=== PATIENT | female | born 1970 | race African-American/Black ===

== ENCOUNTER → 2016-02-27 | Outpatient (CLI) | payer OTHER ==
[~2016-02-27] MED LIST: CAPE150T PO; DIME50TA49 PO; DRGTP100; DRGTP100 TOP; FENT25DI10 TD; FENT25DI2 TD; FNTTP50 TD; IBUP-103 PO; ONDA8TAB6 PO; OXYC1TAB3 PO; TAMO20TA47 PO; XLD/500 PO; zofran
--- NOTE | 2016-02-27 11:30 | DIAGNOSTIC IMAGING REPORT ---
CT OF THE CHEST WITH IV CONTRAST CLINICAL HISTORY: Breast cancer COMPARISON STUDY: 08/06/2015 TECHNIQUE: Following the IV administration of 92 mL of Optiray-320, CT of the thorax was performed from the thoracic inlet to the lung bases. Images are reviewed in the axial, sagittal, and coronal planes. IV contrast was administered without complication. CT DOSE: FINDINGS: Thyroid: Imaged portions of the thyroid gland are normal in appearance. Thoracic aorta: The thoracic aorta is normal in course and caliber, noting standard 3-vessel arch anatomy. No aneurysm or dissection is seen. Pulmonary vasculature: The pulmonary trunk is normal in caliber. There are no central filling defects identified to suggest pulmonary embolus. Note that this examination was not protocoled for the evaluation of pulmonary emboli. HEART: The heart is normal in size and configuration, without pericardial effusion. Lungs and pleural spaces: There is a stable 3 mm right upper lobe pulmonary nodule as visualized in image #[id number]. There are stable subcentimeter right lower lobe and right middle lobe nodules abutting the fissure. There is basilar atelectasis. There is no acute lobar consolidation. There are no significant pleural effusions. Mediastinum: There is no mediastinal lymphadenopathy. Sully: There is no evidence of pathologic adenopathy Axilla: Mildly prominent left axillary lymph nodes remain similar. Upper abdomen: There is a 25 mm hypodensity within the right hepatic lobe. This is suspicious for a metastatic deposit. Tiny hypodensities within the right hepatic lobe. The dome of diaphragm remain stable and likely represent cysts. Skeletal structures: There are diffuse skeletal metastasis which appear progressive when compared the prior study. IMPRESSION: 1. Progressive diffuse skeletal metastasis 2. Enlarging 25 mm lesion within the right lobe of the liver suspicious for a metastatic deposit 3. Stable 3 mm right upper lobe pulmonary nodule and perifissural right middle and lower lobe pulmonary nodules Electronically signed by: Loy Pierce M.D. 02/27/2016 11:28 AM Dictated Date/Time: 02/27/2016 11:21 AM
--- NOTE | 2016-02-27 11:34 | DIAGNOSTIC IMAGING REPORT ---
CT SCAN OF THE ABDOMEN AND PELVIS WITH IV CONTRAST CLINICAL HISTORY: Breast cancer. COMPARISON STUDY: Abdominal CT dated 08/06/2015 and 05/03/2014. TECHNIQUE: Following the IV administration of 92 cc of Optiray 320, CT scan of the abdomen and pelvis is performed from the lung bases to the proximal femora. Images are reviewed in the axial, sagittal, and coronal planes. IV contrast was administered without complication. Automated dose control exposure was utilized. The examination is degraded by streak artifact from the left arm which could not be elevated above the abdomen. CT DOSE: 651.65 mGy.cm FINDINGS: Lung bases: The heart is normal in size and without pericardial effusion. Scarring versus atelectasis is present at both lung bases. There is no airspace consolidation or pleural effusion. Nodules are present in the right middle and right lower lobe as seen on image #22. These measure up to 5 mm and are unchanged from previous. There is a small hiatal hernia. Liver: The contrast-enhanced liver is normal in size, contour, and attenuation. There is no intrahepatic biliary ductal dilatation. The hepatic veins and portal veins are patent. A 2.3 cm low-attenuation lesion is again seen in the right lobe on image #85. This has increased in size from 08/06/2015 and remains concerning for metastatic disease. No new hepatic lesions are identified. 2 subcentimeter hypodensities in the right lobe are unchanged and likely represent cysts but are too small for definitive characterization. Gallbladder: Unremarkable. Spleen: Normal in size and attenuation. Pancreas: Unremarkable. Adrenal glands: Unremarkable. Kidneys: The contrast enhanced kidneys are normal in size and without hydronephrosis. The kidneys enhance symmetrically. Abdominal vasculature: The abdominal aorta is normal in course and caliber noting mild atherosclerotic calcification. Bowel: The small bowel and colon are normal in course and caliber. There is moderate colonic fecal retention. The appendix is not visualized. Peritoneum: There is no intraperitoneal free air or abdominal ascites. There is a fat-containing umbilical hernia with evidence of previous ventral hernia repair. Lymphadenopathy: None. Pelvic viscera: The bladder is decompressed and not well evaluated. The uterus is normal as imaged. There are large bilateral ovarian follicles. The largest is on the right and measures up to 2.5 cm. Skeletal structures: The skeletal structures are osteopenic. 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 This is seen throughout all visualized bony structures and has significantly progressed from 08/06/2015. There is a healing pathologic fracture of the right inferior pubic ring, new from 08/06/2015. Bilateral pathologic rib fractures are also new. An intramedullary nail is partially visualized in the distal left humerus. IMPRESSION: 1. 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 2. Pathologic fractures of the right inferior pubic ring and bilateral ribs are new from previous. 3. An enlarging right lobe hepatic lesion is consistent with progression of metastatic disease. No new liver lesions are seen. 4. Hiatal hernia. 5. Moderate colonic fecal retention. 6. Prior surgical nodules at the right lung base are similar to previous. 7. Additional changes as above. Electronically signed by: García Noel M.D. 02/27/2016 11:32 AM Dictated Date/Time: 02/27/2016 11:22 AM
== END | disposition home or self-care (01) ==
LOC: C.CTS 10:56
PROVIDERS: ATTEND Internal Medicine Hematology & Oncology
DX: C50.919 Malignant neoplasm of unspecified site of unspecified female breast (principal); C79.51 Secondary malignant neoplasm of bone; K44.9 Diaphragmatic hernia without obstruction or gangrene; K59.00 Constipation, unspecified

== ENCOUNTER → 2016-04-21 | Outpatient (CLI) | payer OTHER ==
[~2016-04-21] MED LIST changes: -FENT25DI2 TD; +OPTIRAY 320 IV PRN; -TAMO20TA47 PO
--- NOTE | 2016-04-21 14:36 | DIAGNOSTIC IMAGING REPORT ---
CT brain combination HEAD COMBO CLINICAL HISTORY: Metastatic carcinoma mental status change TECHNIQUE: Pre and postcontrast transaxial images COMPARISON STUDY: 03/07/2014 FINDINGS: Interval development of diffuse bony metastatic change. Microlytic defects are identified within the right temporal fossa region, head of the right mandibular condyle, with small microtear defects involving the right frontal and posterior parietal occipital regions. There is relatively large 2.0 cm defect left frontal bone. There is an associated soft tissue component although this does not appear to erode into the brain substance. Ventricular system is midline. There are additional lytic defects over the cerebral convexities. No definite brain parenchymal lesion is identified. Ventricular system is midline. IMPRESSION: 1. Interval development of diffuse bony metastatic disease throughout the skull. 2. No evidence for parenchymal metastatic change specifically involving the brain 3. There is a large 2 cm lytic focus left frontal bone with associated soft tissue component. This appears to be in contact with the dural surface although direct involvement of the brain does not appear to be present at the current time Electronically signed by: Marco A Lubin M.D. 04/21/2016 2:35 PM Dictated Date/Time: 04/21/2016 2:29 PM
--- NOTE | 2016-04-21 14:50 | DIAGNOSTIC IMAGING REPORT ---
CT NECK WITH INTRAVENOUS CONTRAST HISTORY: Metastatic breast cancer. Bone metastases. TECHNIQUE: Multiaxial CT images of the neck were performed following the use of intravenous contrast. COMPARISON STUDY: Bone scan 08/06/2015. FINDINGS: There are multiple mixed lytic and sclerotic metastatic lesions seen throughout the visualized osseous structures including the entire cervical and thoracic spine. There are also mixed lytic and sclerotic lesions at the clivus and left occipital bone. Large metastatic lesion involving the majority of right hemimandible including the right mandibular condyle. There is near complete destruction of the angle of the right hemimandible due to the soft tissue metastatic focus. This soft tissue mass surrounding the ramus/angle of the right hemimandible measures up to 1.9 cm in thickness. Multiple subacute to chronic pathologic fractures involving the visualized upper ribs. There are also multiple metastatic lesions seen throughout the visualized ribs, sternum, and clavicles. There is a mildly displaced pathologic fracture at the spinous process of C7. This is also likely subacute to chronic. No cervical lymphadenopathy. The thyroid gland enhances normally. The major cervical vessels are patent. Prevertebral soft tissues and the epiglottis are normal in thickness. The orbits are unremarkable. Centered at the T2 level there is a component of the destructive soft tissue mass which extends into the paravertebral and epidural space. This measures up to 4 mm in thickness at the epidural space. However, this no central canal narrowing. There appears be a few additional areas of paraspinal/epidural involvement of destructive soft tissue masses within the upper thoracic spine. IMPRESSION: 1. There are innumerable mixed lytic and sclerotic metastatic lesions seen throughout the visualized osseous structures as described above. This involves the entire visualized cervical and thoracic spine. 2. Large destructive metastatic lesion involving the majority of the right hemimandible with an associated expansile soft tissue component surrounding the ramus/angle of the right hemimandible which measures up to 1.9 cm in thickness. 3. Some of the metastatic lesions within the upper thoracic spine extend into the paraspinal and epidural soft tissues. This is most pronounced at T2 which demonstrates 4 mm of epidural expansion. However, this no significant central canal narrowing. 4. Subacute to chronic pathologic fractures involving the spinous processes of C7 and within the visualized bilateral upper ribs. Electronically signed by: Bk Baptiste M.D. 04/21/2016 2:49 PM Dictated Date/Time: 04/21/2016 2:29 PM
== END | disposition home or self-care (01) ==
LOC: C.CTS 13:51
PROVIDERS: ATTEND Internal Medicine Hematology & Oncology
DX: C50.919 Malignant neoplasm of unspecified site of unspecified female breast (principal)

== ENCOUNTER → 2016-12-22 | Outpatient (CLI) | payer OTHER ==
[~2016-12-22] MED LIST changes: -CAPE150T PO; -DRGTP100 TOP; -FENT25DI10 TD; -FNTTP50 TD; +MethylPREDNISolone HOME PACK 16 MG TAB PO SCH; -XLD/500 PO; -zofran
--- NOTE | 2016-12-22 16:59 | DIAGNOSTIC IMAGING REPORT ---
ABD/PELVIS IV AND ORAL CONT CLINICAL HISTORY: 46 years-old Female presenting with BREAST CA. TECHNIQUE: Multidetector CT of the abdomen and pelvis was performed after the administration of oral and intravenous contrast. IV contrast: 116 mL of Optiray 320. A dose lowering technique was used consistent with the principles of ALARA (as low as reasonably achievable). COMPARISON: 02/27/2016. CT DOSE (mGy.cm): The estimated cumulative dose is 396.54 mGy.cm. FINDINGS: [facility] topogram: Unremarkable. Lung bases: Minimal bandlike opacities at the lung bases likely atelectasis or scarring. Several of the right lung base nodules are stable from prior and at least one has resolved. Normal heart size. No pericardial or pleural effusion. Liver: Normal morphology. Previously noted lesion in the lateral right hepatic lobe has decreased in size with minimal overlying subcapsular retraction. This lesion now measures 13 mm (series 7 image 67), previously 23 mm. Multiple additional well-defined hypodensities in the liver, too small to characterize but likely hepatic cysts or hamartomas. Patent hepatic vasculature. Biliary: No intrahepatic or extrahepatic biliary ductal dilatation. Normal gallbladder. Pancreas: Mild prominence of the pancreatic duct unchanged from prior. No evidence of an obstructing mass at the level of the ampulla Vater. Normal pancreatic parenchyma. Spleen: Normal. Adrenal glands: Poorly visualized. Kidneys and ureters: Normal. No hydronephrosis. Bladder: Mild circumferential bladder wall thickening. Pelvic organs: Uterus and ovaries normal. Bowel: Moderate stool burden primarily in the right and transverse colon. No bowel obstruction. Peritoneal cavity: No free fluid or intraperitoneal gas. Lymph nodes: No enlarged lymph nodes in the abdomen or pelvis. Vasculature: Atherosclerosis of the normal caliber abdominal aorta. IVC patent. Abdominal wall: Normal. Musculoskeletal: Diffuse heterogeneity of bone marrow consistent with diffuse skeletal metastatic disease. The degree of diffuse osseous involvement makes direct comparison difficult, however, the bone marrow appears diffusely more sclerotic. Deformities of the bilateral inferior pubic rami consistent with healed fractures. IMPRESSION: 1. Overall evolution of diffuse osseous metastatic disease, with increased sclerosis of bone marrow. The diffuse degree of osseous involvement makes direct comparison difficult, and the presence of sclerosis could potentially indicate posttreatment change. 2. Decreased size of the single suspicious hepatic lesion concerning for metastases. This suggests treatment response. 3. Moderate stool burden. Electronically signed by: Cuauhtemoc Gonzalez M.D. 12/22/2016 4:57 PM Dictated Date/Time: 12/22/2016 4:47 PM
--- NOTE | 2016-12-22 17:42 | DIAGNOSTIC IMAGING REPORT ---
(CHEST) THORAX WITH CLINICAL HISTORY: 46 years-old Female presenting with BREAST CA. TECHNIQUE: Multidetector CT imaging of the chest was performed after the administration of intravenous contrast. IV contrast: 116 mL of Optiray 320. A dose lowering technique was used consistent with the principles of ALARA (as low as reasonably achievable). COMPARISON: 02/27/2016. CT DOSE (mGy.cm): The estimated cumulative dose is 396.[address] abdomen and pelvis. FINDINGS: [employer] Down Nurse topogram: Unremarkable. On soft tissue windows, biopsy clip or calcification noted in the left breast. Possible fat microcysts may be associated with this along the medial and inferior aspect. Normal thyroid. Subcentimeter prominent left axillary lymph nodes are not pathologically enlarged by CT size criteria and not significantly changed from prior exam. No axillary, supraclavicular, internal mammary, hilar, or mediastinal lymphadenopathy. Atherosclerosis of the aorta. Normal heart size. No pericardial or pleural effusion. Right hepatic lesion better characterized on CT of the abdomen and pelvis. Multiple small hypodensities in the liver likely hepatic cysts or hamartomas. On lung windows, solid pulmonary nodules in the right lung are unchanged from prior (series 6 images 80, 172, 177, and 181). These measure up to 3 mm in size. Minimal fissural nodularity in the left lung is also unchanged (series 6 image 153). No new pulmonary nodule. Minimal bandlike opacities at the lung bases likely atelectasis or scarring. Airways patent. On bone windows, fixation hardware partially visualized in the left humeral head. Diffuse heterogeneity of bone marrow consistent with diffuse osseous metastatic disease. Bone marrow appears more sclerotic on the current exam. Redemonstration of pathologic healed rib fractures. IMPRESSION: 1. Stable small pulmonary nodules. No new pulmonary nodule or other evidence of intrathoracic metastatic disease. No lymphadenopathy. 2. Diffuse osseous metastatic disease appears more sclerotic on the current exam. Direct comparison to the prior exam to assess for worsening of disease is difficult due to the diffuse nature. However, increased sclerosis is nonspecific but can be seen in the setting of post treatment change. 3. Please see separately dictated CT of the abdomen and pelvis for intra-abdominal findings. Electronically signed by: Cuauhtemoc Gonzalez M.D. 12/22/2016 5:41 PM Dictated Date/Time: 12/22/2016 5:32 PM
== END | disposition home or self-care (01) ==
LOC: C.CTS 12-18 15:17
PROVIDERS: ATTEND Internal Medicine Hematology & Oncology
DX: C50.919 Malignant neoplasm of unspecified site of unspecified female breast (principal); R91.1 Solitary pulmonary nodule; K59.00 Constipation, unspecified

== ENCOUNTER 2017-05-10 17:41 | Emergency (ER) | payer OTHER ==
[~2017-05-10] VITALS: Ht 157.5 cm; Wt 58.2 kg
[~2017-05-10 17:41] MED LIST changes: -ENOX60IN SQ; -FNTTP25 TOP; -ONDA-63 PO; -OXYC-164 PO; -WARF3TAB6 PO; -XLD/500 PO; -[UNRECOGNIZED DRUG - REMARK] PO
[2017-05-10 18:03] VITALS: TEMP 36.7; Ht 157.5 cm; Wt 58.2 kg
[2017-05-10] MEDS ORDERED: FNTTP25 TOP (18:59)
[2017-05-10] MEDS ORDERED: OXYC-164 PO (18:59)
[2017-05-10] MEDS ORDERED: ONDA-63 PO (18:59)
[2017-05-10] MEDS ORDERED: [UNRECOGNIZED DRUG - REMARK] PO (19:01)
--- NOTE | 2017-05-10 19:04 | EMERGENCY ROOM VISIT NOTE ---
History Report prepared by William: Valentine Baez Under the Supervision of: Dr. Maldonado Montano M.D. First contact with patient: 18:07 Chief Complaint: ABNORMAL DIAGNOSTIC TESTING Stated Complaint: PAIN History of Present Illness The patient is a 46 year old black female with a past medical history of breast cancer metastasized to the bone who presents to the ED with a cc of constant right leg pain beginning 3 days ago. The pain improves with elevation and oxycodone. Positive nausea. Negative vomiting, chest pain, SOB. She has spent a lot of time driving recently. She had an ultrasound today which was positive for DVT. She does smoke and use alcohol occasionally. Source of History: patient Onset: 3 days ago Position: leg (right) Quality: other (pain and swelling) Timing: constant Modifying Factors (Relieving): narcotics, elevation Associated Symptoms: + nausea, No chest pain, No SOB, No vomiting Review of Systems See HPI for pertinent positives and negatives. A total of ten systems were reviewed and were otherwise negative. Past Medical & Surgical Medical Problems: (1) Breast cancer metastasized to bone (2) Pathologic fracture of humerus Family History Pt reports a family history of at a young age. Social History Smoking Status: Current Every Day Smoker Alcohol Use: occasionally Marital Status: single Occupation Status: unemployed Current/Historical Medications Scheduled Enoxaparin (Lovenox), 60 MG SQ Q12H Fentanyl (Fentanyl), 100 MCG TOP CQ72HR Fentanyl (Fentanyl), 25 MCG TOP CQ72HR [Unknown Chemo Med], 3 TABS PO BID Scheduled PRN Dimenhydrinate (Dramamine), 100 MG PO Q8 PRN for Nausea Ibuprofen Tab (Advil), 800 MG PO Q8 PRN for Pain Ondansetron (Ondansetron HCl), 8 MG PO Q6H PRN for Nausea Oxycodone Hcl (Oxycodone Hcl), 10 MG PO Q4-6HRS PRN for Pain Allergies Coded Allergies: Egg (Verified Allergy, Intermediate, HIVES, 04/20/16) Eggs or Egg-derived Products (Verified Allergy, Intermediate, HIVES, ) Morphine (Verified Allergy, Intermediate, NAUSEA, VOMITING, 04/20/16) Iodinated Diagnostic Agents (Unverified Allergy, Mild, HIVES, 12/18/16) HIVES INNER THIGHS ABOUT AN HOUR AFTER EXAM Gadobutrol (Verified Adverse Reaction, Intermediate, HIVES, 04/20/16) PT WAS INJECTED WITH 8 CC GADAVIST, PT BECAME ITCHY AND DEVELOPED HIVES Physical Exam Vital Signs Date Time Temp Pulse Resp B/P (MAP) Pulse Ox O2 Delivery O2 Flow Rate FiO2 05/10/17 20:55 88 18 108/70 98 Room Air 05/10/17 18:57 73 18 96/54 99 Room Air 05/10/17 18:03 36.7 74 18 96/59 93 Room Air Physical Exam GENERAL: Awake, alert, well-appearing, NAD HENT: Normocephalic, atraumatic. EYES: Normal conjunctiva. Sclera non-icteric. NECK: Supple. No nuchal rigidity. FROM. RESPIRATORY: CTAB, no rhonchi, wheezing, crackles CARDIAC: RRR, no MRG ABDOMEN: Soft, NTND, BS+ MSK: No chest wall TTP. Mild RLE warmth, positive Homans sign, mild swelling compared to left, compartments soft and NVI distally. NEURO: GCS 15, CN 2-12 intact, moves all 4s on command SKIN: No rash or jaundice noted. Medical Decision & Procedures Laboratory Results Test 05/10/17 19:03 Bedside Hemoglobin 9.9 g/dl (12.0-16.0) Bedside Hematocrit 29 % (37-47) Bedside Sodium 138 mEq/L (135-144) Bedside Potassium 4.0 mEq/L (3.3-5.0) Bedside Chloride 102 mEq/L (101-112) Bedside Total CO2 28 mEq/l (24-31) Anion Gap 14.0 mmol/L (16-25) Bedside Blood Urea Nitrogen 15 mg/dl (7-18) Bedside Creatinine 0.9 mg/dl (0.6-1.3) Bedside Glucose (other) 87 mg/dl (70-99) Bedside Ionized Calcium (Julio) 1.15 mmol/l (1.12-1.32) Laboratory results reviewed by me Medications Administered Medications (Trade) Dose Ordered Sig/Wesley Route Start Time Stop Time Status Last Admin Dose Admin Miscellaneous (Lovenox Teaching Kit) 1 ea PRN STAT N/A 05/10/17 19:22 05/10/17 19:23 DC 05/10/17 19:22 1 EA Enoxaparin Sodium (Lovenox Inj) 60 mg ONE STAT SQ 05/10/17 19:25 05/10/17 19:26 DC 05/10/17 20:48 60 MG ED Course 1808: The patient was evaluated in room C1B. A complete history and physical exam was performed. 1836: I discussed the patients case with Dr. Myrick, [facility] hematology/oncology. He recommended Lovenox. If there are any problems with Lovenox, Xarelto or Eliquis. 1930: I reevaluated the patient. Discussed results and discharge instructions: She verbalized understanding and agreement. The patient is ready for discharge. Medical Decision Nursing notes reviewed. Ancillary studies and prior records reviewed. The patient is a 46 year old black female with a past medical history of breast cancer metastasized to the bone who presents to the ED with a cc of constant right leg pain beginning 3 days ago. Etiologies such as soft tissue injury, fracture, dislocation, neurovascular compromise, compartment syndrome, as well as others were entertained. Patient was seen and evaluated the bedside. Patient had been complaining of some right-sided leg pain that of an ongoing since Wednesday. Patient did have a DVT ultrasound which showed a nonocclusive DVT of the right lower extremity. Patient did have some mild calf pain. Compartments are soft. Patient is neurovascularly intact distally. Patient did have a BMP completed in order to help with anticoagulation therapy management. I did discuss the case with the on-call supervisor gelatin plant oncologist who recommended Lovenox but if this was difficult to obtain for possible social reasons that Eliquis or Xarelto would be appropriate. I did discuss it with the your pharmacist to help facilitate insuring that the patient would be able to receive Lovenox. Patient's kidney function was normal. Patient did receive a 60 mg dose of Lovenox. Patient did receive bedside instruction by the nurse on self administration of the Lovenox. Patient was given a prescription for 30 days with 1 refill was told to follow-up with her PCP as well as her oncologist for further management treatment. The patient does not complain of any shortness of breath or chest pain. Patient has stable vitals do not believe she needs a CT PE protocol at this time. Patient was counseled on smoking cessation. Patient was given strict follow-up, discharge, and return precautions. All questions were answered. Patient was deemed suitable for outpatient follow-up at this time. Patient agreed with the plan of care and was safely discharged home. Medication Reconcilliation Current Medication List: was personally reviewed by me Blood Pressure Screening Patient's blood pressure: Normal blood pressure Blood pressure disposition: Did not require urgent referral Consults Time Called: 1831 Consulting Physician: Dr. Myrick, [facility] hematology/oncology Returned Call: 1836 I discussed the patient's case with him. He recommended Lovenox. If there are any problems with Lovenox, Xarelto or Eliquis. Impression Primary Impression: DVT (deep venous thrombosis) Additional Impressions: Leg pain Encounter for smoking cessation counseling Scribe Attestation The scribe's documentation has been prepared under my direction and personally reviewed by me in its entirety. I confirm that the note above accurately reflects all work, treatment, procedures, and medical decision making performed by me. Departure Information Dispostion Home / Self-Care Prescriptions Enoxaparin (Lovenox) 60 Mg/0.6 Ml Inj 60 MG SQ Q12H for 28 Days, #56 SYR Prov: Maldonado Montano M.D. 05/10/17 Referrals No Doctor, Assigned (PCP) Patient Instructions DVT Prevent, ED DVT, My [facility] Additional Instructions Please return to the emergency department if you have worsening or recurrent symptoms not amenable to at-home treatment. Please call for a follow-up appointment with her primary care physician. Please take your medications as prescribed. If you have other concerns and/or complaints please feel free to also call your primary care physician's office or return the ED for further evaluation, management, and treatment. You were found to have an elevated blood pressure today (>120 sytolic or >90 diastolic). Per medicare guidelines, you need to follow up with this blood pressure screening with your Primary Care Physician (PCP). For a new PCP call [phone]. You received narcotic or benzodiazepene medication while in the emergency room today. This is an addictive medication that may cause drowziness as well as constipation. Do not drive, operate heavy machinery, or drink alcohol under the influence of this medication. You may take tylenol 1000 mg every 6 hours as needed for pain. Please take your Lovenox as instructed. Avoid things like NSAIDs. Take your medications as prescribed. If taking an antibiotic consider taking a probiotic and/or eating yogurt, but at the least, please take with food as it can cause upset stomach.. You have been examined and treated today on an emergency basis only. This is not a substitute for, or an effort to provide, complete comprehensive medical care. It is impossible to recognize and treat all injuries or illnesses in a single emergency department visit. It is therefore important that you follow up closely with [facility], your PCP, and/or your specialist(s). Call as soon as possible for an appointment. Thank you for your time and consideration. I look forward to speaking with you again soon. Please don't hesitate to call us if you have any questions. Problem Qualifiers Primary Impression: DVT (deep venous thrombosis) DVT location: lower extremity Affected thrombotic vein of extremity: unspecified vein of extremity Chronicity: acute Laterality: right Qualified Codes: I82.401 - Acute embolism and thrombosis of unspecified deep veins of right lower extremity Additional Impressions: Leg pain Laterality: right Qualified Codes: M79.604 - Pain in right leg
[2017-05-10 19:14] LABS: ISTAT CREATININE 0.9 mg/dl (0.6-1.3); ISTAT IONIZED CALCIUM 1.15 mmol/l (1.12-1.32)
[2017-05-10] MEDS ORDERED: ENOXAPARIN 1 MG/KG SQ STA (19:22)
[2017-05-10] MEDS ORDERED: LOVENOX TEACHING KIT STA (19:22)
[2017-05-10] MEDS ORDERED: ENOXAPARIN 60 MG/0.6 ML SYR SQ STA (19:25)
[2017-05-10] MEDS ORDERED: ENOX60IN SQ (19:37)
[2017-05-10 20:55] VITALS: BP 108/70; PULSE 88; O2SAT 98
== END 2017-05-10 21:10 | disposition home or self-care (01) ==
LOC: C.EDB 17:42 → C.EDC 21:10
DX: I82.401 Acute embolism and thrombosis of unspecified deep veins of right lower extremity (principal); R11.0 Nausea; F17.200 Nicotine dependence, unspecified, uncomplicated; Z79.891 Long term (current) use of opiate analgesic; Z91.012 Allergy to eggs; Z88.6 Allergy status to analgesic agent; Z91.041 Radiographic dye allergy status

== ENCOUNTER → 2017-05-10 | Outpatient (CLI) | payer OTHER ==
[~2017-05-10] MED LIST changes: -DRGTP100; +DRGTP100 TOP; +ENOX60IN SQ; +FNTTP25 TOP; -MethylPREDNISolone HOME PACK 16 MG TAB PO SCH; +ONDA-170 PO; +ONDA-63 PO; -ONDA8TAB6 PO; -OPTIRAY 320 IV PRN; +OXYC-164 PO; +WARF3TAB6 PO; +XLD/500 PO; +[UNRECOGNIZED DRUG - REMARK] PO
--- NOTE | 2017-05-10 15:12 | DIAGNOSTIC IMAGING REPORT ---
ABD/PELVIS ORAL CONT ONLY CLINICAL HISTORY: 46 years-old Female presenting with METASTATIC BREAST CA. TECHNIQUE: Multidetector CT of the abdomen and pelvis was performed after the administration of oral contrast only. IV contrast: None. A dose lowering technique was used consistent with the principles of ALARA (as low as reasonably achievable). COMPARISON: 12/22/2016. CT DOSE (mGy.cm): The estimated cumulative dose is 453.96. FINDINGS: [facility] topogram: S-shaped scoliotic curvature of the spine. Osteopenia suspected. Intramedullary nail and interlocking screw fixation of the left humerus. Lung bases: Bandlike opacities at the lung bases likely atelectasis or scarring. Intraventricular blood pool is less dense and adjacent myocardium consistent with anemia. Normal heart size. No pericardial or pleural effusion. Liver: Normal morphology. Normal density. Biliary: No gross biliary ductal dilatation allowing for noncontrast technique. Normal gallbladder. Pancreas: Normal noncontrast appearance. Spleen: Normal noncontrast appearance. Adrenal glands: Poorly visualized. Kidneys and ureters: Normal noncontrast appearance. No nephrolithiasis. No hydronephrosis. Normal ureters. Bladder: Normal. Pelvic organs: Normal noncontrast appearance. Bowel: Normal. No bowel obstruction. Peritoneal cavity: No free fluid or intraperitoneal gas. Lymph nodes: No enlarged lymph nodes in the abdomen or pelvis. Vasculature: Atherosclerosis of the normal caliber abdominal aorta. IVC patent. Abdominal wall: Small fat-containing umbilical hernia. Musculoskeletal: Extensively heterogeneous bone marrow, which is diffusely mixed lytic sclerotic involving every bone included within the [id number]. Extensive erosive changes of the left sacroiliac joint. IMPRESSION: 1. Extensive bony metastatic disease. This is similar to prior exam. No evidence of a pathologic fracture. 2. No gross evidence of intra-abdominal metastatic disease, although the examination is highly limited due to noncontrast technique. Electronically signed by: Cuauhtemoc Gonzalez M.D. 05/10/2017 3:11 PM Dictated Date/Time: 05/10/2017 3:03 PM
--- NOTE | 2017-05-10 15:20 | DIAGNOSTIC IMAGING REPORT ---
CT SCAN OF THE CHEST WITHOUT IV CONTRAST CLINICAL HISTORY: Metastatic breast cancer. COMPARISON STUDY: Chest CT scans dated 12/22/2016 and 05/03/2014. TECHNIQUE: CT scan of the thorax was performed from the thoracic inlet to the upper abdomen. Images are reviewed in the axial, sagittal, and coronal planes. IV contrast was not administered for this examination as the patient declined premedication for a reported history of allergy. The examination is suboptimal without IV contrast. The examination is also degraded by streak artifact from the left arm which could not be elevated above the chest. A dose lowering technique was utilized adhering to the principles of ALARA. CT DOSE: 453.96 mGy.cm FINDINGS: Thyroid: Imaged portions of the thyroid gland are normal in size and attenuation. Thoracic aorta: The thoracic aorta is normal in caliber and demonstrates standard 3-vessel arch anatomy. Heart: The heart is normal in size and without pericardial effusion. Lungs and pleural spaces: Mild emphysematous change is identified. There is no airspace consolidation typical for pneumonia. Dependent atelectasis versus scarring is present at both lung bases. The trachea and central airways are clear. A 3 mm right upper lobe nodule on image #91 and foci of pleural-based nodularity in the right middle lobe along the major fissure on image #186 measuring up to 5 mm 7 present dating back to 2014 and are of indeterminant significance. No new pulmonary nodule is identified. Mediastinum: There is no mediastinal lymphadenopathy. Sully: Normal assessed without IV contrast. Axillae: Prominent right axillary nodes measure up to 8 mm in short axis and prominent left axillary nodes measure up to 10 mm in short axis. Upper abdomen: A subtle low-attenuation lesion is suggested in the right hepatic lobe on image #217 measuring 10 mm. Skeletal structures: The skeletal structures are osteopenic. There is diffuse osteoblastic metastatic disease seen throughout all of the visualized bony structures. Kyphoscoliosis is noted in the thoracic spine. Postoperative change is seen in the left proximal humerus. Soft tissues: Nonspecific normal thickening is noted in the anterior right shoulder on image #29. This measures up to 7 mm in thickness. IMPRESSION: 1. Findings of extensive/diffuse osteoblastic metastatic disease has not appreciably changed from 12/22/2016. 2. Prominent axillary lymph nodes are similar to previous. 3. No airspace consolidation or pleural effusion is identified. 4. Small pulmonary and pleural-based nodules have not significantly changed dating back to 2014 and are of indeterminant significance. No new pulmonary lesion is suggested. 5. A subtle 1 cm hepatic lesion is suggested. 6. Emphysema. 7. Additional findings as above. Electronically signed by: García Noel M.D. 05/10/2017 3:19 PM Dictated Date/Time: 05/10/2017 3:10 PM
--- NOTE | 2017-05-10 15:41 | DIAGNOSTIC IMAGING REPORT ---
LEFT SHOULDER 3 VIEWS CLINICAL HISTORY: Left shoulder pain. FINDINGS: 3 views of the left shoulder are correlated with left humeral radiographs dated 03/07/2014 and correlated with chest CT performed the same day 05/10/2017. The skeletal structures are osteopenic and infiltrated by diffuse osteoblastic metastatic disease. Chronic posttraumatic deformity is seen in the left proximal humeral shaft with an intramedullary nail in place. Orthopedic hardware appears intact. No acute fracture is identified. No dislocation is seen. The glenohumeral and acromioclavicular joints are preserved. There are healed left-sided rib fractures. The overlying soft tissues are normal in appearance. The visualized left upper lobe lung parenchyma appears clear. IMPRESSION: 1. Osteopenia with diffuse osteoblastic metastatic disease as above. 2. No acute fracture or dislocation is identified. 3. Chronic posttraumatic and postoperative change is noted in the left humerus. 4. There are healed left-sided rib fractures. Electronically signed by: García Noel M.D. 05/10/2017 3:40 PM Dictated Date/Time: 05/10/2017 3:38 PM
--- NOTE | 2017-05-10 17:01 | DIAGNOSTIC IMAGING REPORT ---
ULTRASOUND BILATERAL LOWER EXTREMITY VENOUS CLINICAL HISTORY: Leg swelling. COMPARISON STUDY: No priors. TECHNIQUE: Real-time, grayscale, and color Doppler sonography of the deep veins of the right and left lower extremity was performed from the inguinal crease to the calf. Compression and augmentation were utilized. FINDINGS: Right lower extremity: There is nearly occlusive to occlusive deep venous thrombosis identified throughout the superficial femoral vein and the popliteal vein. Thrombus is also seen within the calf vessels. The common femoral vein is patent and normally compressible. The greater saphenous vein and the profunda femoris vein at the junction with the common femoral vein are clear. Left lower extremity: There is no sonographic evidence of deep venous thrombosis identified in the left lower extremity. The common femoral, superficial femoral, and popliteal veins are patent and normally compressible. The greater saphenous vein and the profunda femoris vein at the junction with the common femoral vein are clear. The visualized calf veins are patent. IMPRESSION: 1. Extensive nearly occlusive to occlusive right lower extremity deep venous thrombosis as above. 2. There is no sonographic evidence of deep venous thrombosis identified in the left lower extremity. Electronically signed by: García Noel M.D. 05/10/2017 5:00 PM Dictated Date/Time: 05/10/2017 4:57 PM
== END | disposition home or self-care (01) ==
LOC: C.CTS 14:03
PROVIDERS: ATTEND Internal Medicine Hematology & Oncology
DX: C50.919 Malignant neoplasm of unspecified site of unspecified female breast (principal); I82.411 Acute embolism and thrombosis of right femoral vein; I82.431 Acute embolism and thrombosis of right popliteal vein; M85.812 Other specified disorders of bone density and structure, left shoulder; R91.8 Other nonspecific abnormal finding of lung field; K76.9 Liver disease, unspecified; J43.9 Emphysema, unspecified